=== PATIENT | female | born 1930 | race Caucasian/White ===

== ENCOUNTER 2017-04-16 13:52 | Emergency (ER) | payer OTHER, BC ==
[2017-04-16 16:58] LABS: BASOPHIL % 0.7 % (0-2); PLATELET COUNT 341 x10^3mcL (130-400); RED CELL DISTRIBUTION WIDTH 14.4 % (11.5-14.5)
[2017-04-16 17:08] LABS: CALCIUM 9.5 mg/dL (8.5-10.1); CARBON DIOXIDE 21.6 mmol/L (21-32); CHLORIDE SERUM 102 mmol/L (98-107); CREATININE SERUM 0.9 mg/dL (0.6-1.0); GLUCOSE SERUM 112 mg/dL (74-106); POTASSIUM SERUM 3.5 mmol/L (3.5-5.1); SODIUM SERUM 135 mmol/L (136-145)
[2017-04-16 17:12] LABS: ALKALINE PHOSPHATASE 145 U/L (46-116); ALT/SGPT 17 U/L (14-59); AMYLASE 43 U/L (25-115); AST/SGOT 18 U/L (15-37); BILIRUBIN TOTAL 0.7 mg/dL (0.20-1.00); LIPASE 44 IU/L (73-393); TOTAL PROTEIN, SERUM 8.2 g/dL (6.4-8.2)
[2017-04-16 17:40] LABS: microscopic required? YES; urine erythrocyte NEGATIVE (NEGATIVE)
[2017-04-16 19:10] VITALS: BP 147/98
== END 2017-04-16 19:10 | disposition home or self-care (01) ==
LOC: ED 13:52
PROVIDERS: Emergency Medicine
DX: R10.9 Unspecified abdominal pain (principal); R19.7 Diarrhea, unspecified; I10 Essential (primary) hypertension; E11.9 Type 2 diabetes mellitus without complications; Z79.899 Other long term (current) drug therapy
CPT/HCPCS: 83880; J2405; J7030

== ENCOUNTER 2017-08-12 16:02 | Inpatient (IN) | payer OTHER, BC ==
[~2017-08-12] VITALS: Ht 162.6 cm; Wt 91.0 kg
--- NOTE | 2017-08-12 16:50 | NUR ---
PT BIB SON FOR C/O RIGHT FLANK PAIN AND WEAKNESS, PT REPORT WAS JUST SEEN BY PRIMARY MD DR. 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
--- NOTE | 2017-08-12 16:53 | NUR ---
DR. HUBER AT BEDSIDE FOR MSE
--- NOTE | 2017-08-12 18:00 | NUR ---
PT MEDICATED PER MD ORDER FOR PAIN AND N/V, PT TOLERATED WELL, LAB AT BEDSIDE FOR BLOOD DRAW AND BLOOD CULTURES, WILL ADMINISTER ORDERED IV ABX AFTER BLOOD CULTURES
[2017-08-12 18:38] LABS: BASOPHIL % 1.8 % (0-2); PLATELET COUNT 356 x10^3mcL (130-400); RED CELL DISTRIBUTION WIDTH 14.5 % (11.5-14.5)
--- NOTE | 2017-08-12 18:57 | NUR ---
UPON ASSISTANCE WITH PT TO RESTROOM PT REPORTS PAIN LOWERED FORM 07/14 TO 10/14 AFTER MED ADMINISTRATION
--- NOTE | 2017-08-12 18:57 | NUR ---
PT IV INFILTRATED PT WAS ASSISTED TO RESTROOM AND WASHED HANDS IN SINK, IV DISCONNECTED WITH ANGIOCATH INTACT, PRESSURE DRESSING APPLIED, IV ABX TO BE INFUSED SOON ANOTHER IV SITE IS ESTABLISHED, URINE COLLECTED AND SENT TO LAB FOR TESTS, MRSA SWAB COLLECTED AND SENT TO LAB
--- NOTE | 2017-08-12 19:00 | NUR ---
REPORT RECEIVED FROM DAY SHIFT RN NO SIGN OF DISTRESS PT TO BE ADMIT AWAIT BED PLACEMENT MED GIVEN PER MD IV IN PLACE AQDMITION ORDERS IN PLACE VSS CONT TO MONITOR CONT TO MONITOR
[2017-08-12 19:03] LABS: CALCIUM 9.2 mg/dL (8.5-10.1); CARBON DIOXIDE 24.8 mmol/L (21-32); CHLORIDE SERUM 105 mmol/L (98-107); GLUCOSE SERUM 78 mg/dL (74-106); POTASSIUM SERUM 3.6 mmol/L (3.5-5.1); SODIUM SERUM 141 mmol/L (136-145)
[2017-08-12 19:14] LABS: CREATINE KINASE 25 U/L (26-192)
[2017-08-12 19:21] LABS: ALBUMIN 3.5 g/dL (3.4-5.0); ALKALINE PHOSPHATASE 140 U/L (46-116); ALT/SGPT 26 U/L (14-59); AST/SGOT 18 U/L (15-37); BILIRUBIN TOTAL 0.3 mg/dL (0.20-1.00); TOTAL PROTEIN, SERUM 8.2 g/dL (6.4-8.2)
[2017-08-12 19:38] LABS: CK-MB < 0.5 ng/mL (0-3.6)
[2017-08-12 19:50] LABS: microscopic required? YES; urine erythrocyte TRACE (NEGATIVE)
--- NOTE | 2017-08-12 20:35 | NUR ---
REPORT CALLED TO FRANCISCO J COOK RN ALL QUESTIONS ASKED AND ANSWERED PT [facility]
--- NOTE | 2017-08-12 21:00 | NUR ---
PT TRANSFERED TO FLOOR W/ RN AND TECH VIA GURNEY FROM CT IN STABLE CONDITION W/ ALL PERSONAL BELONGINGS.
[2017-08-12 21:18] LABS: T3 TOTAL 1.07 ng/mL
[2017-08-12 21:19] VITALS: BP 178/90
[2017-08-12 21:21] LABS: FREE T4 0.82 ng/dL (0.76-1.46); FREE THYROXINE INDEX 1.8 ug/dL (1.4-4.5); T4(THYROXINE) 5.7 ug/dL (4.7-13.3)
--- NOTE | 2017-08-12 21:26 | NUR ---
RECEIVED PT FROM ED VIA [employer]. ORIENTED PT TO ROOM AND SURROUNDINGS. IV NOTED TO LEFT HAND PATENT AND INTACT. TELE 14 PALCED ON PT READING NSR. INSTRUCTED PT ON THE USE OF CALL LIGHT FOR ASSISTANCE. ENDORSED PT TO PRIMARY NURSE FRANCISCO J
[2017-08-12 21:31] VITALS: BP 179/90
[2017-08-12 21:33] LABS: CHOLESTEROL/HDL RATIO 3.6; PHOSPHOROUS 2.6 mg/dL (2.5-4.9)
[2017-08-12] MEDS ORDERED: CLONIDINE HCL0.2 MG PO (21:40)
[2017-08-12] MEDS ORDERED: NOR10 PO (21:44)
[2017-08-12] MEDS ORDERED: BENAZEPRIL HYDR20 M1 PO (21:44)
[2017-08-12] MEDS ORDERED: OMEPRAZOLE40 M1 PO (21:45)
[2017-08-12] MEDS ORDERED: NOR10T PO (21:46)
[2017-08-12] MEDS ORDERED: CYMBALTA60 M1 PO (21:46)
[2017-08-12] MEDS ORDERED: ULTRAM50 MG PO (21:47)
[2017-08-12] MEDS ORDERED: GLIMEPIRIDE1 M1 PO (21:49)
--- NOTE | 2017-08-12 22:11 | NUR ---
RECEIVED PT FROM ED, NO ACUTE DISTRESS. ORIENTED PT TO ROOM. WILL CONTINUE TO MONITOR.
--- NOTE | 2017-08-12 22:52 | NUR ---
AGENCY DOCUMENTATION DONE BY Staff Name/Title - :CHAZ BANKS Addeparsandy User ID - : Agency Name - :[employer] Time Documented - From - : To - :
--- NOTE | 2017-08-13 00:11 | NUR ---
PT CURRENTLY RESTING IN BED, NO ACUTE DISTRESS. WILL CONTINUE TO MONITOR.
[2017-08-13 05:15] VITALS: BP 142/76
--- NOTE | 2017-08-13 06:05 | NUR ---
PT SLEPT PERIODICALLY THROUGHOUT NIGHT, NO ACUTE DISTRESS. ALL NEEDS MET AND ATTENDED TO. NO SIGNIFICANT CHANGES. IV PATENT AND INTACT. MEDICATED PAIN PER EMAR. BED IN LOWEST POSITION, SIDE RAILS UP X2, CALL LIGHT WITHIN REACH. WILL ENDORSE CARE TO ONCOMING NURSE.
[2017-08-13 06:06] LABS: BASOPHIL % 0.2 % (0-2); PLATELET COUNT 303 x10^3mcL (130-400)
[2017-08-13 06:17] LABS: CALCIUM 8.8 mg/dL (8.5-10.1); CARBON DIOXIDE 24.2 mmol/L (21-32); CHLORIDE SERUM 108 mmol/L (98-107); GLUCOSE SERUM 127 mg/dL (74-106); MAGNESIUM 1.9 mg/dL (1.8-2.4); PHOSPHOROUS 3.3 mg/dL (2.5-4.9); POTASSIUM SERUM 3.4 mmol/L (3.5-5.1); SODIUM SERUM 140 mmol/L (136-145)
[2017-08-13 06:23] LABS: RED CELL DISTRIBUTION WIDTH 14.7 % (11.5-14.5)
--- NOTE | 2017-08-13 07:30 | NUR ---
PATIENT IS SITTING UP IN BED. AWAKE ALERT AND ORIENTED. IV DISLODGED AND BLEEDING WHEN PATIENT GOT OOB TO THE BATHROOM. NEW IV STARTED ON RT FOREARM. PER PATIENT SHE IS HAVING LOW BACK PAIN 5/10 ON THE PAIN SCALE. WILL MEDICATE ORDERED. LUNGS CLEAR ON ROOM AIR. PATIENT IS OBESE, ABD SOFT BOWEL SOUNDS ACTIVE. LBM YESTERDAY. VOIDING WELL + UTI. NO ACUTE DISTRESS NOTED. WILL CONTINUE TO [facility]. TELE 14 NSR.
--- NOTE | 2017-08-13 08:00 | NUR ---
PATIENT'S PLAN OF CARE WAS DISCUSSED AND REVIEWED WITH FRONT DESK MANAGER:PHUONG MUÑOZ
--- NOTE | 2017-08-13 08:15 | NUR ---
DR LINDA AND MEDICAL TEAM INTO SEE PATIENT AND DISCUSS PLAN OF CARE.
--- NOTE | 2017-08-13 09:10 | NUR ---
PATIENT OOB WITH P.T. AND AMBULATED WITH REYNALDO OF A WALKER. TOLERATED WELL.
[2017-08-13 09:36] VITALS: BP 149/71
[2017-08-13] MEDS ORDERED: ATIVAN1 MG PO ×3 (13:15→13:18)
[2017-08-13 13:30] VITALS: BP 149/85
--- NOTE | 2017-08-13 13:39 | NUR ---
PATIENT SITTING UP IN BED EATING LUNCH TRAY. DENIES ANY PAIN OR DISCOMFORT AT THIS TIME. ASSISTED UP TO THE BATHROOM PRN. NO ACUTE DISTRESS NOTED. WILL CONTINUE TO MONITOR.
[2017-08-13 17:28] VITALS: BP 164/86
--- NOTE | 2017-08-13 18:18 | NUR ---
PATIENT SITTING UP IN BED EATING DINNER TRAY. NO CHANGE IN CONDITION NOTED. RENAL US DONE THIS AFTERNOON. PATIENT ASSISTED UP TO THE BATHROOM PRN. PER PATIENT SHE HAD A BM THIS AM. IVF INFUSING WELL SITE PATENT. NO CHANGE IN CONDITION NOTED. WILL ENDORSE TO [facility] NURSE.
--- NOTE | 2017-08-13 18:55 | NUR ---
I HAVE REVIEWED THE DATA COLLECTION BY LETICIA (NAME):PHUONG MUÑOZ ENTERED ON (DATE/TIME):08/13/17 I CONCUR WITH THE DATA AND ANY EXCEPTIONS OR COMMENTS ARE LISTED BELOW:
--- NOTE | 2017-08-13 19:23 | NUR ---
RECEIVED PT FROM PREVIOUS SHIFT. PT A/OX4. DENIES PAIN. DENIES SOB ON RA. IV PATENT AND INFUSING NS AT 100ML/HR WITH NO S/S OF INFILTRATION. WALKER AT BEDSIDE. CALL LIGHT WITHIN REACH, BED IN LOW POSITION. WILL CONTINUE TO MONITOR.
[2017-08-13 21:56] VITALS: BP 162/79
[2017-08-14 06:00] VITALS: BP 166/102
[2017-08-14 06:22] LABS: CALCIUM 8.8 mg/dL (8.5-10.1); CARBON DIOXIDE 23.2 mmol/L (21-32); CHLORIDE SERUM 106 mmol/L (98-107); GLUCOSE SERUM 97 mg/dL (74-106); MAGNESIUM 1.8 mg/dL (1.8-2.4); SODIUM SERUM 139 mmol/L (136-145)
[2017-08-14 06:37] LABS: BASOPHIL % 0.5 % (0-2); PLATELET COUNT 302 x10^3mcL (130-400); RED CELL DISTRIBUTION WIDTH 14.8 % (11.5-14.5)
--- NOTE | 2017-08-14 07:34 | NUR ---
RECEIVED PT LAYING IN BED SOMEWHAT AWAKE. STATES THAT SHE DOESN'T FEEL GOOD SHE DID YESTERDAY, AND THAT SHE FEELS MORE WEAK. LET PT KNOW TO CALL FOR ASSISTANCE WHEN NEEDING TO GET UP FOR SAFETY, AND THAT SOMETIMES BEING IN THIS SETTING CAN CAUSE THE FEELING OF WEAKNESS DUE TO DECREASED ACTIVITY, AND THAT WE WOULD DISCUSS THE PLAN OF CARE WITH THE MEDICAL TEAM. PT APPEARED RECEPTIVE. CALL LIGHT WITHIN REACH, BED IN LOWEST POSITION. REMINDED TO CALL FOR ASSISTANCE WHEN NEEDED. WILL CONTINUE TO MONITOR
--- NOTE | 2017-08-14 08:35 | NUR ---
AM ROUNDS DONE, PER DR. JULIO, PT WILL STAY FOR FURTHER OBSERVATION AND CONTINUE ON IV ABX. AWAITING RESULTS OF URINE CULTURE. PT AAO x4, AND APPEARED PECEPTIVE TO TREATMENT PLAN. CALL LIGHT WITHIN REACH WILL CONTINUE TO MONITOR
[2017-08-14 10:23] VITALS: BP 146/71
--- NOTE | 2017-08-14 12:00 | NUR ---
PT CURRENTLY LYING IN SEMIFOWLERS POSITION, SOCIALIZING WITH WOOD SCIENCE PROFESSOR. VERY PLEASANT WHEN ENGAGED. TALKING TO ME ABOUT HER LIFE, HAVING MOVED FROM [facility]. BED IN LOWEST POSITION. CALL LIGHT WITHIN REACH. WILL CONTINEU TO MONITOR
[2017-08-14 13:22] VITALS: BP 144/48
--- NOTE | 2017-08-14 13:30 | NUR ---
PT EXPRESSED TO THIS SENIOR COBOL DEVELOPER THAT SHE IS NOT HAPPY ABOUT HAVING TO BE TRANSFERRED TO A SNF. STATES THAT SHE HAS BEEN TO A LOT AND THAT THE CARE THERE IS NOT GOOD, AND THAT SHE HAS GOOD INSURANCE AND DOESN'T UNDERSTAND WHY SHE CAN'T STAY HERE AND FINISH OUT HER IV ABX TREATMENT. ALLOWED HER TO VENTILATE HER FEELINGS AND THAT I WOULD CALL CASE MAE TO COME SPEAK TO HER IN REGARDS TO THE MATTER
[2017-08-14 17:15] VITALS: BP 150/80
--- NOTE | 2017-08-14 19:27 | NUR ---
SHIFT REASSESSMENT DONE.PATIENT ALERT AND ORIENTED.MAKE NEEDSKNOWN.MODIFIED CODE.GEN WEAKNESS,USES WALKER,CALL LIGHT IN REACH FOR ASSISTANCE.NS ORDERED.INFUSING WELL.TELE 14 SR.SKIN INTACT.HEPARIN SQ.FREQUENCY IN URINATION/BURNING/UTI DX.CALL LITE IN REACH.
--- NOTE | 2017-08-14 20:16 | NUR ---
PATIENT DEMANDING FOR HER NORCO Q 4 HOURS PRN,DR ALLAN MADE AWARE.IT IS SCHEDULED TID 06/17/17
--- NOTE | 2017-08-14 20:52 | NUR ---
PATIENT WANTING HER AMBIEN,I SAY I ALREADY GAVE HER,WANT ATIVAN TOO,GIVEN ALSO NORCO SHE DEMANDED EARLIER.REMINDED TO CALL FOR ASSISTANCE/BSC,SAYS SHE URINATE OFTEN.
--- NOTE | 2017-08-14 21:04 | NUR ---
ASSISTED BY SR. MANAGER CORPORATE COMMUNICATIONS,BSC IN PLACE DURING THE NIGHT.C/O FREQUENCY IN URINATION.
[2017-08-14 21:19] VITALS: BP 136/76
--- NOTE | 2017-08-15 01:28 | NUR ---
PATIENT ASSIST BSC.VOIDING,SAYS SHE URINATE OFTEN.NS AT 100 CC/ HOUR.CALL LIGHT IN REACH.
--- NOTE | 2017-08-15 05:10 | NUR ---
PATIENT DISCHARGE PLAN TODAY TO SNF,FOR PHYSICAL THERAPY AND ANTIBIOTIC.
[2017-08-15 05:35] VITALS: BP 139/76
--- NOTE | 2017-08-15 06:09 | NUR ---
PATIENT BLOOD SUGAR THIS AM 100.IVF NS AT 100 CC/ HOUR.WILL ENDORSE TO NEXT SHIFT.CALL LIGHT IN REACH.
[2017-08-15 06:14] LABS: BASOPHIL % 0.7 % (0-2); PLATELET COUNT 278 x10^3mcL (130-400)
[2017-08-15 06:30] LABS: CALCIUM 8.9 mg/dL (8.5-10.1); CARBON DIOXIDE 25.2 mmol/L (21-32); CHLORIDE SERUM 106 mmol/L (98-107); GLUCOSE SERUM 99 mg/dL (74-106); POTASSIUM SERUM 3.9 mmol/L (3.5-5.1); SODIUM SERUM 140 mmol/L (136-145)
[2017-08-15 06:49] LABS: RED CELL DISTRIBUTION WIDTH 14.8 % (11.5-14.5)
--- NOTE | 2017-08-15 07:20 | NUR ---
PT IN FOWLERS, AWAKE, COOPERATIVE OF CARE. DENIES PAIN AT MOMENT. REPORTS WEAKNESS. BANDAID IN PLACE TO RLE POSTERIOR THIGH, CDI. IV INFUSING WELL TO RH #24 NS 100ML/HR. EFFORTLESS BREATHING ON ROOM AIR. CALL LIGHT WITHIN REACH. BED IN LOWEST POSITION, FWW AT BEDSIDE FOR AMBULATION.
[2017-08-15 09:42] VITALS: BP 146/76
[2017-08-15] MEDS ORDERED: LAC PO (12:59)
[2017-08-15 13:39] VITALS: BP 153/71
[2017-08-15 13:48] VITALS: Ht 162.6 cm; Wt 91.0 kg
[2017-08-15] MEDS ORDERED: ROC1I IV (13:49)
[2017-08-15 13:59] VITALS: BP 153/71
--- NOTE | 2017-08-15 14:10 | NUR ---
IV ACCESS RESTARTED TO LFA #22. IV PATENT, FLUSHES WELL. PT TOLERATED PROCEDURE WELL. IV ACCESS REMOVED DUE TO INFILTRATION. RH IV CATHETER REMOVED #24. CATHETER INTACT.
--- NOTE | 2017-08-15 15:30 | NUR ---
DISCHARGE INSTRUCTIONS AND TRANSFER INSTRUCTIONS GIVEN TO PT. TELE BOX REMOVED. PT AGREED TO BE TRANSFERRED TO FACILITY. REPORT GIVEN TO SUMA LOPES AT FACILITY. [facility] PROVIDED TRANSPORTATION. PT DC'D WITH IV ACCESS FOR ABX CONTINUATION. IV ACCESS TO LFA #22.
== END 2017-08-15 15:39 | DRG 872 ==
LOC: ED 16:02 → DU 19:53
PROVIDERS: Emergency Medicine; Family Medicine; ADMIT Family Medicine Sports Medicine
DX: A41.9 Sepsis, unspecified organism (principal); N39.0 Urinary tract infection, site not specified; D68.69 Other thrombophilia; E11.59 Type 2 diabetes mellitus with other circulatory complications; R31.9 Hematuria, unspecified; K21.9 Gastro-esophageal reflux disease without esophagitis; K57.30 Diverticulosis of large intestine without perforation or abscess without bleeding; I10 Essential (primary) hypertension; D35.02 Benign neoplasm of left adrenal gland; M06.9 Rheumatoid arthritis, unspecified; E87.6 Hypokalemia; F32.9 Major depressive disorder, single episode, unspecified; G47.00 Insomnia, unspecified; M34.9 Systemic sclerosis, unspecified; E78.5 Hyperlipidemia, unspecified; D64.9 Anemia, unspecified; G89.29 Other chronic pain; M25.561 Pain in right knee; Z68.34 Body mass index [BMI] 34.0-34.9, adult; Z99.81 Dependence on supplemental oxygen
CPT/HCPCS: 36600; 82962; 83880; 84439; 97110-GP; 97116-GP; 97530-GP; J0696; J0780; J1644; J3010; J7030; Q0092

== ENCOUNTER 2018-03-09 16:03 | Inpatient (IN) | payer OTHER, BC ==
[~2018-03-09] VITALS: Ht 162.6 cm; Wt 86.8 kg
[~2018-03-09 16:03] MED LIST: ATIVAN1 MG PO; BENAZEPRIL HYDR20 M1 PO; CLONIDINE HCL0.2 MG PO; CYMBALTA60 M1 PO; GLIMEPIRIDE1 M1 PO; LAC PO; NOR10 PO; NOR10T PO; OMEPRAZOLE40 M1 PO; ROC1I IV; ULTRAM50 MG PO
[2018-03-09 17:30] LABS: BASOPHIL % 0.4 % (0-2); PLATELET COUNT 300 x10^3mcL (130-400)
[2018-03-09 17:34] LABS: RED CELL DISTRIBUTION WIDTH 14.8 % (11.5-14.5)
[2018-03-09 17:39] LABS: CALCIUM 8.8 mg/dL (8.5-10.1); CARBON DIOXIDE 19.6 mmol/L (21-32); CHLORIDE SERUM 110 mmol/L (98-107); CREATININE SERUM 1.2 mg/dL (0.6-1.0); GLUCOSE SERUM 88 mg/dL (74-106); POTASSIUM SERUM 3.1 mmol/L (3.5-5.1); SODIUM SERUM 146 mmol/L (136-145)
[2018-03-09 17:42] LABS: ALBUMIN 3.6 g/dL (3.4-5.0); ALKALINE PHOSPHATASE 146 U/L (46-116); ALT/SGPT 18 U/L (14-59); AST/SGOT 16 U/L (15-37); BILIRUBIN TOTAL 0.29 mg/dL (0.20-1.00); TOTAL PROTEIN, SERUM 7.9 g/dL (6.4-8.2)
[2018-03-09 19:05] LABS: UA SPECIFIC GRAVITY <=1.005 (1.005-1.035); microscopic required? YES; urine erythrocyte TRACE (NEGATIVE)
[2018-03-09 20:15] VITALS: BP 155/87
[2018-03-09 20:42] LABS: CHOLESTEROL/HDL RATIO 3.8; PHOSPHOROUS 3.6 mg/dL (2.5-4.9); TOTAL IRON BINDING CAPACITY 408 ug/dL (250-450)
[2018-03-09 20:43] LABS: IRON 30 ug/dL (50-170)
[2018-03-09 20:47] LABS: FREE T4 0.95 ng/dL (0.76-1.46); FREE THYROXINE INDEX 2.7 ug/dL (1.4-4.5); T4(THYROXINE) 8.3 ug/dL (4.7-13.3)
[2018-03-09 20:48] LABS: RED BLOOD CELLS 4.26 M/mm3 (4.10-5.10)
[2018-03-09 21:12] LABS: T3 TOTAL 1.15 ng/mL
[2018-03-10] VITALS (7 sets, daily range): BP systolic 110–151; BP diastolic 56–79
[2018-03-10 06:50] LABS: BASOPHIL % 0.4 % (0-2); PLATELET COUNT 323 x10^3mcL (130-400)
[2018-03-10 06:59] LABS: RED CELL DISTRIBUTION WIDTH 14.8 % (11.5-14.5)
[2018-03-10 07:11] LABS: CARBON DIOXIDE 24.4 mmol/L (21-32); CHLORIDE SERUM 106 mmol/L (98-107); CREATININE SERUM 1.2 mg/dL (0.6-1.0); GLUCOSE SERUM 102 mg/dL (74-106); MAGNESIUM 2.1 mg/dL (1.8-2.4); PHOSPHOROUS 3.9 mg/dL (2.5-4.9); POTASSIUM SERUM 4.1 mmol/L (3.5-5.1); SODIUM SERUM 141 mmol/L (136-145)
[2018-03-11 05:46] VITALS: BP 104/59
[2018-03-11 06:23] LABS: BASOPHIL % 0.5 % (0-2); PLATELET COUNT 357 x10^3mcL (130-400)
[2018-03-11 06:31] LABS: CALCIUM 9.1 mg/dL (8.5-10.1); CHLORIDE SERUM 106 mmol/L (98-107); CREATININE SERUM 1.3 mg/dL (0.6-1.0); GLUCOSE SERUM 126 mg/dL (74-106); MAGNESIUM 2.1 mg/dL (1.8-2.4); PHOSPHOROUS 3.9 mg/dL (2.5-4.9); POTASSIUM SERUM 3.8 mmol/L (3.5-5.1); SODIUM SERUM 142 mmol/L (136-145)
[2018-03-11 06:43] LABS: RED CELL DISTRIBUTION WIDTH 15.2 % (11.5-14.5)
[2018-03-11 18:07] VITALS: BP 144/63
[2018-03-11 20:54] VITALS: BP 115/58
[2018-03-12 05:39] VITALS: BP 108/68
[2018-03-12 05:55] LABS: BASOPHIL % 0.5 % (0-2); PLATELET COUNT 299 x10^3mcL (130-400)
[2018-03-12 06:29] LABS: CALCIUM 8.9 mg/dL (8.5-10.1); CARBON DIOXIDE 27.3 mmol/L (21-32); CHLORIDE SERUM 105 mmol/L (98-107); CREATININE SERUM 1.4 mg/dL (0.6-1.0); GLUCOSE SERUM 120 mg/dL (74-106); PHOSPHOROUS 4.1 mg/dL (2.5-4.9); SODIUM SERUM 141 mmol/L (136-145)
[2018-03-12 06:33] LABS: RED CELL DISTRIBUTION WIDTH 14.9 % (11.5-14.5)
[2018-03-12 08:28] VITALS: Ht 162.6 cm; Wt 86.8 kg
[2018-03-12 10:29] VITALS: BP 134/69
[2018-03-12] MEDS ORDERED: MEROPENEM1 GM IV (15:53)
[2018-03-12 17:27] VITALS: BP 134/69
[2018-03-12] MEDS ORDERED: ATIVAN1 MG PO (17:32)
== END 2018-03-12 17:45 | DRG 871 ==
LOC: ED 16:03 → DU 18:41 → MU 18:41 → DU 19:50 → MU 03-10 11:45
PROVIDERS: Emergency Medicine; Family Medicine
DX: A41.9 Sepsis, unspecified organism (principal); I50.43 Acute on chronic combined systolic (congestive) and diastolic (congestive) heart failure; L03.116 Cellulitis of left lower limb; N39.0 Urinary tract infection, site not specified; E87.0 Hyperosmolality and hypernatremia; E11.42 Type 2 diabetes mellitus with diabetic polyneuropathy; E11.51 Type 2 diabetes mellitus with diabetic peripheral angiopathy without gangrene; E11.65 Type 2 diabetes mellitus with hyperglycemia; I11.0 Hypertensive heart disease with heart failure; J20.9 Acute bronchitis, unspecified; E87.6 Hypokalemia; E78.5 Hyperlipidemia, unspecified; D64.9 Anemia, unspecified; M06.9 Rheumatoid arthritis, unspecified; Z66 Do not resuscitate; R31.9 Hematuria, unspecified; G47.00 Insomnia, unspecified; K21.9 Gastro-esophageal reflux disease without esophagitis; E66.9 Obesity, unspecified; Z68.32 Body mass index [BMI] 32.0-32.9, adult; Z87.891 Personal history of nicotine dependence
CPT/HCPCS: 82962; 83880; 84439; 85378; 94150; 97110-GP; 97116-GP; 97530-GP; J0696; J1644; J1940; J2185; J2405; J2543; J7620; Q0092

== ENCOUNTER 2018-10-08 12:58 | Inpatient (IN) | payer OTHER, BC ==
[~2018-10-08] VITALS: Ht 162.6 cm; Wt 87.1 kg
[~2018-10-08 12:58] MED LIST changes: +MEROPENEM1 GM IV
[2018-10-08 13:33] VITALS: Ht 162.6 cm; Wt 87.1 kg
[2018-10-08 15:04] LABS: RED CELL DISTRIBUTION WIDTH 14.4 % (11.5-14.5)
[2018-10-08] MEDS ORDERED: CYMBALTA20 M1 (15:10)
[2018-10-08] MEDS ORDERED: MAC100 (15:10)
[2018-10-08] MEDS ORDERED: NORCO 10-325 T1 EACH PO (15:11)
[2018-10-08] MEDS ORDERED: GELNIQUE100 MG/GM TOP (15:11)
[2018-10-08 15:12] LABS: PLATELET COUNT 434 x10^3mcL (130-400)
[2018-10-08 15:39] LABS: ALKALINE PHOSPHATASE 138 U/L (46-116); ALT/SGPT 19 U/L (14-59); AST/SGOT 17 U/L (15-37); BILIRUBIN TOTAL 1.05 mg/dL (0.20-1.00); CALCIUM 9.1 mg/dL (8.5-10.1); CARBON DIOXIDE 21.4 mmol/L (21-32); CHLORIDE SERUM 95 mmol/L (98-107); CREATININE SERUM 1.5 mg/dL (0.6-1.0); GLUCOSE SERUM 238 mg/dL (74-106); MAGNESIUM 2.2 mg/dL (1.8-2.4); SODIUM SERUM 133 mmol/L (136-145)
[2018-10-08 15:49] LABS: TOTAL PROTEIN, SERUM 8.8 g/dL (6.4-8.2)
[2018-10-08 15:50] LABS: ALBUMIN 3.8 g/dL (3.4-5.0)
[2018-10-08 15:51] LABS: BAND NEUTROPHIL 3 % (0-10); BASOPHIL 0 % (0-2); MONOCYTE 3 % (0-7); SEGMENTED NEUTROPHILS 86 % (37-75); rbc morphology (normal/abnorm) NORMAL (NORMAL)
[2018-10-08 15:52] LABS: PLATELET MORPHOLOGY PLATELETS INCREASED
[2018-10-08 16:49] LABS: UA SPECIFIC GRAVITY 1.025 (1.005-1.035); microscopic required? YES; urine erythrocyte TRACE (NEGATIVE)
[2018-10-08 22:38] VITALS: BP 215/101
[2018-10-09] VITALS (7 sets, daily range): BP systolic 152–216; BP diastolic 68–105
[2018-10-09 07:08] LABS: CALCIUM 8.8 mg/dL (8.5-10.1); CHLORIDE SERUM 100 mmol/L (98-107); CREATININE SERUM 1.3 mg/dL (0.6-1.0); GLUCOSE SERUM 237 mg/dL (74-106); SODIUM SERUM 136 mmol/L (136-145)
[2018-10-09 09:00] LABS: PLATELET COUNT 429 x10^3mcL (130-400); RED CELL DISTRIBUTION WIDTH 14.8 % (11.5-14.5)
[2018-10-09 10:58] LABS: ATYPICAL LYMPH 1 %; BAND NEUTROPHIL 1 % (0-10); BASOPHIL 0 % (0-2); MONOCYTE 4 % (0-7); PLATELET MORPHOLOGY PLATELETS NORMAL; SEGMENTED NEUTROPHILS 91 % (37-75); rbc morphology (normal/abnorm) ABNORMAL (NORMAL)
[2018-10-10 05:05] VITALS: BP 132/63
[2018-10-10 09:40] VITALS: BP 160/83
[2018-10-10 17:37] VITALS: BP 177/102
[2018-10-10 20:47] VITALS: BP 169/85
[2018-10-11 05:26] VITALS: BP 167/72
[2018-10-11 06:36] LABS: BASOPHIL % 0.2 % (0-2); PLATELET COUNT 320 x10^3mcL (130-400)
[2018-10-11 06:37] LABS: CALCIUM 8.4 mg/dL (8.5-10.1); CHLORIDE SERUM 105 mmol/L (98-107); CREATININE SERUM 1.2 mg/dL (0.6-1.0); GLUCOSE SERUM 153 mg/dL (74-106); POTASSIUM SERUM 5.1 mmol/L (3.5-5.1); SODIUM SERUM 136 mmol/L (136-145)
[2018-10-11 06:49] LABS: RED CELL DISTRIBUTION WIDTH 14.6 % (11.5-14.5)
[2018-10-11 08:20] VITALS: BP 159/63
[2018-10-11 12:00] VITALS: BP 141/63
[2018-10-11 17:50] VITALS: BP 169/76
[2018-10-11 21:49] VITALS: BP 172/68
[2018-10-12 05:54] VITALS: BP 152/63
[2018-10-12 06:49] LABS: CALCIUM 8.1 mg/dL (8.5-10.1); CARBON DIOXIDE 25.4 mmol/L (21-32); CHLORIDE SERUM 104 mmol/L (98-107); CREATININE SERUM 1.1 mg/dL (0.6-1.0); GLUCOSE SERUM 168 mg/dL (74-106); SODIUM SERUM 136 mmol/L (136-145)
[2018-10-12 07:29] LABS: BASOPHIL % 0.3 % (0-2); PLATELET COUNT 267 x10^3mcL (130-400); RED CELL DISTRIBUTION WIDTH 14.5 % (11.5-14.5)
[2018-10-12 10:00] VITALS: BP 144/61
[2018-10-12 11:47] VITALS: BP 144/61
[2018-10-12 13:46] VITALS: BP 165/74
[2018-10-12 16:57] VITALS: BP 174/66
[2018-10-12 20:26] VITALS: BP 148/64
[2018-10-13 05:39] VITALS: BP 152/80; BP 92/54
[2018-10-13 09:33] VITALS: BP 187/81
[2018-10-13 11:01] VITALS: BP 152/80
[2018-10-13 12:31] VITALS: BP 152/86
[2018-10-13 18:27] VITALS: BP 153/90
== END 2018-10-13 19:29 | DRG 371 ==
LOC: ED 12:58 → DU 19:16
PROVIDERS: Emergency Medicine; ADMIT Internal Medicine
DX: K65.9 Peritonitis, unspecified (principal); N17.0 Acute kidney failure with tubular necrosis; K57.92 Diverticulitis of intestine, part unspecified, without perforation or abscess without bleeding; K52.9 Noninfective gastroenteritis and colitis, unspecified; K27.9 Peptic ulcer, site unspecified, unspecified as acute or chronic, without hemorrhage or perforation; I16.0 Hypertensive urgency; I12.9 Hypertensive chronic kidney disease with stage 1 through stage 4 chronic kidney disease, or unspecified chronic kidney disease; N18.2 Chronic kidney disease, stage 2 (mild); E87.6 Hypokalemia; G47.00 Insomnia, unspecified; M06.9 Rheumatoid arthritis, unspecified; Z79.891 Long term (current) use of opiate analgesic
CPT/HCPCS: 87804; 97110-GP; 97116-GP; 97530-GP; J0360; J1885; J1956; J2270; J2405; J2543; J2550; J2765; J3010; J3480; J3490; J7030

== ENCOUNTER 2018-12-26 19:23 | Inpatient (IN) | payer OTHER, BC ==
[~2018-12-26] VITALS: Ht 162.6 cm; Wt 89.1 kg
[~2018-12-26 19:23] MED LIST changes: +CYMBALTA20 M1; +GELNIQUE100 MG/GM TOP; +MAC100; +NORCO 10-325 T1 EACH PO
[2018-12-26 21:15] LABS: OSMOLALITY SERUM 283 mOsm/kg (278-298)
[2018-12-26 21:32] LABS: CARBON DIOXIDE 23.8 mmol/L (21-32); CHLORIDE SERUM 101 mmol/L (98-107); CREATININE SERUM 1.2 mg/dL (0.6-1.0); GLUCOSE SERUM 176 mg/dL (74-106); SODIUM SERUM 137 mmol/L (136-145)
[2018-12-26 21:33] LABS: ALBUMIN 3.4 g/dL (3.4-5.0); ALKALINE PHOSPHATASE 133 U/L (46-116); ALT/SGPT 19 U/L (14-59); AST/SGOT 16 U/L (15-37); BILIRUBIN TOTAL 0.48 mg/dL (0.20-1.00); CALCIUM 9.1 mg/dL (8.5-10.1); LIPASE 37 IU/L (73-393); TOTAL PROTEIN, SERUM 7.9 g/dL (6.4-8.2)
[2018-12-26 21:36] LABS: POTASSIUM SERUM 2.8 mmol/L (3.5-5.1)
[2018-12-26 23:45] LABS: BASOPHIL % 0.2 % (0-2)
[2018-12-26 23:52] LABS: PLATELET COUNT 425 x10^3mcL (130-400); RED CELL DISTRIBUTION WIDTH 14.7 % (11.5-14.5)
[2018-12-27] VITALS (7 sets, daily range): BP systolic 138–181; BP diastolic 71–95; Ht 162.6 cm; Wt 89.1 kg
[2018-12-27] MEDS ORDERED: PREDNISONE2.5 MG PO (00:30)
[2018-12-27 05:19] LABS: microscopic required? YES; urine erythrocyte NEGATIVE (NEGATIVE)
[2018-12-27 11:03] LABS: BASOPHIL % 0.5 % (0-2); PLATELET COUNT 394 x10^3mcL (130-400); RED CELL DISTRIBUTION WIDTH 13.4 % (11.5-14.5)
[2018-12-27 12:24] LABS: CALCIUM 8.3 mg/dL (8.5-10.1); CARBON DIOXIDE 26.5 mmol/L (21-32); CHLORIDE SERUM 105 mmol/L (98-107); GLUCOSE SERUM 158 mg/dL (74-106); POTASSIUM SERUM 3.9 mmol/L (3.5-5.1); SODIUM SERUM 136 mmol/L (136-145)
[2018-12-28 05:26] VITALS: BP 148/83
[2018-12-28 07:18] LABS: BASOPHIL % 1.2 % (0-2); PLATELET COUNT 378 x10^3mcL (130-400); RED CELL DISTRIBUTION WIDTH 14.9 % (11.5-14.5)
[2018-12-28 07:20] LABS: CALCIUM 8.6 mg/dL (8.5-10.1); CARBON DIOXIDE 22.4 mmol/L (21-32); CHLORIDE SERUM 109 mmol/L (98-107); GLUCOSE SERUM 111 mg/dL (74-106); POTASSIUM SERUM 4.3 mmol/L (3.5-5.1); SODIUM SERUM 141 mmol/L (136-145)
[2018-12-28 09:23] VITALS: BP 202/102
[2018-12-28 14:08] VITALS: BP 167/96
[2018-12-28 15:25] VITALS: BP 164/92
[2018-12-28 17:39] VITALS: BP 177/92
[2018-12-28 21:20] VITALS: BP 140/73
[2018-12-29 06:00] VITALS: BP 174/82
[2018-12-29 06:51] LABS: BASOPHIL % 0.3 % (0-2); PLATELET COUNT 399 x10^3mcL (130-400)
[2018-12-29 06:54] LABS: CALCIUM 8.8 mg/dL (8.5-10.1); CARBON DIOXIDE 23.7 mmol/L (21-32); CHLORIDE SERUM 106 mmol/L (98-107); GLUCOSE SERUM 127 mg/dL (74-106); POTASSIUM SERUM 3.6 mmol/L (3.5-5.1); SODIUM SERUM 139 mmol/L (136-145)
[2018-12-29 07:27] LABS: RED CELL DISTRIBUTION WIDTH 14.9 % (11.5-14.5)
[2018-12-29 09:33] VITALS: BP 137/50
[2018-12-29 13:29] VITALS: BP 167/71
[2018-12-29 17:04] VITALS: BP 154/52
[2018-12-29 21:05] VITALS: BP 183/81
[2018-12-29 21:56] VITALS: BP 156/76
[2018-12-30 06:00] VITALS: BP 134/70
[2018-12-30 10:46] VITALS: BP 129/74
[2018-12-30 13:45] VITALS: BP 108/52
[2018-12-30 15:17] VITALS: BP 108/52
[2018-12-30 17:14] VITALS: BP 138/79
== END 2018-12-30 18:15 | DRG 683 ==
LOC: ED 19:23 → DU 23:05 → EDBEDREQ 23:09 → DU 23:55
PROVIDERS: Emergency Medicine; Internal Medicine Gastroenterology; ADMIT Internal Medicine
PROC: 0DBH8ZX Excision of Cecum, Via Natural or Artificial Opening Endoscopic, Diagnostic (ICD-10-PCS; principal; 2018-12-28 11:00)
PROC: 0DBL8ZZ Excision of Transverse Colon, Via Natural or Artificial Opening Endoscopic (ICD-10-PCS; 2018-12-28 11:00)
PROC: 0DBN8ZZ Excision of Sigmoid Colon, Via Natural or Artificial Opening Endoscopic (ICD-10-PCS; 2018-12-28 11:00)
DX: N17.9 Acute kidney failure, unspecified (principal); N39.0 Urinary tract infection, site not specified; K52.9 Noninfective gastroenteritis and colitis, unspecified; K57.30 Diverticulosis of large intestine without perforation or abscess without bleeding; E86.0 Dehydration; I12.9 Hypertensive chronic kidney disease with stage 1 through stage 4 chronic kidney disease, or unspecified chronic kidney disease; E11.22 Type 2 diabetes mellitus with diabetic chronic kidney disease; E11.65 Type 2 diabetes mellitus with hyperglycemia; E11.42 Type 2 diabetes mellitus with diabetic polyneuropathy; K63.5 Polyp of colon; N18.9 Chronic kidney disease, unspecified; E87.6 Hypokalemia; K21.9 Gastro-esophageal reflux disease without esophagitis; M06.9 Rheumatoid arthritis, unspecified; M34.83 Systemic sclerosis with polyneuropathy; Z68.31 Body mass index [BMI] 31.0-31.9, adult; Z79.84 Long term (current) use of oral hypoglycemic drugs; Z79.4 Long term (current) use of insulin
CPT/HCPCS: 43235; 45378; 82962; 83880; 87046; 87046-59; J1200; J1610; J1956; J2250; J2270; J2310; J2405; J2550; J3010; J3475; J3490; J7030; J7512; Q0092

== ENCOUNTER 2019-05-28 02:34 | Inpatient (IN) | payer OTHER, BC, MEDICAID ==
[~2019-05-28] VITALS: Ht 162.6 cm; Wt 84.4 kg
[~2019-05-28 02:34] MED LIST changes: -BENAZEPRIL HYDR20 M1 PO; +BENAZEPRIL HYDR40 M1 PO; -CYMBALTA20 M1; +CYMBALTA20 M1 PO; +GELNIQUE100 MG/GM PO; -GELNIQUE100 MG/GM TOP; +PREDNISONE2.5 MG PO
[2019-05-28 02:37] VITALS: Ht 162.6 cm; Wt 84.4 kg
[2019-05-28 03:31] LABS: BASOPHIL % 0.2 % (0-2); PLATELET COUNT 360 x10^3mcL (130-400); RED CELL DISTRIBUTION WIDTH 14.7 % (11.5-14.5)
[2019-05-28 03:49] LABS: CALCIUM 8.7 mg/dL (8.5-10.1); CARBON DIOXIDE 19.5 mmol/L (21-32); CHLORIDE SERUM 104 mmol/L (98-107); CREATININE SERUM 1.2 mg/dL (0.6-1.0); GLUCOSE SERUM 165 mg/dL (74-106); POTASSIUM SERUM 3.7 mmol/L (3.5-5.1); SODIUM SERUM 139 mmol/L (136-145)
[2019-05-28 03:54] LABS: ALBUMIN 3.5 g/dL (3.4-5.0); ALKALINE PHOSPHATASE 166 U/L (46-116); ALT/SGPT 14 U/L (14-59); AMYLASE 29 U/L (25-115); AST/SGOT 12 U/L (15-37); BILIRUBIN TOTAL 0.49 mg/dL (0.20-1.00); LIPASE 20 IU/L (73-393); TOTAL PROTEIN, SERUM 7.9 g/dL (6.4-8.2)
[2019-05-28 06:20] VITALS: BP 175/77
[2019-05-28 08:25] VITALS: BP 157/85
[2019-05-28 16:54] VITALS: BP 162/79
[2019-05-28 19:32] VITALS: BP 144/89
[2019-05-29 05:14] VITALS: BP 154/77
[2019-05-29 07:07] LABS: CALCIUM 7.7 mg/dL (8.5-10.1); CHLORIDE SERUM 102 mmol/L (98-107); GLUCOSE SERUM 178 mg/dL (74-106); POTASSIUM SERUM 3.6 mmol/L (3.5-5.1); SODIUM SERUM 134 mmol/L (136-145)
[2019-05-29 07:14] LABS: BASOPHIL % 0.1 % (0-2); PLATELET COUNT 364 x10^3mcL (130-400)
[2019-05-29 07:15] LABS: RED CELL DISTRIBUTION WIDTH 15.1 % (11.5-14.5)
[2019-05-29 08:10] VITALS: BP 171/85
[2019-05-29 10:15] VITALS: BP 147/79
[2019-05-29 12:00] VITALS: BP 152/73
[2019-05-29 16:17] VITALS: BP 147/70
[2019-05-29 20:31] VITALS: BP 156/78
[2019-05-30 06:29] VITALS: BP 138/78
[2019-05-30 07:47] VITALS: BP 191/100
[2019-05-30 09:39] VITALS: BP 155/79
[2019-05-30 09:53] LABS: BASOPHIL % 0.4 % (0-2); PLATELET COUNT 333 x10^3mcL (130-400); RED CELL DISTRIBUTION WIDTH 14.7 % (11.5-14.5)
[2019-05-30 10:50] LABS: microscopic required? NO
[2019-05-30 11:16] LABS: urine erythrocyte NEGATIVE (NEGATIVE)
[2019-05-30 16:42] VITALS: BP 163/87
[2019-05-30 20:23] VITALS: BP 165/91
[2019-05-31 06:04] VITALS: BP 149/71
[2019-05-31 08:46] VITALS: BP 158/64
[2019-05-31 17:33] VITALS: BP 143/86
[2019-05-31 21:03] VITALS: BP 166/80
[2019-05-31 23:08] VITALS: BP 173/90
[2019-06-01 05:37] VITALS: BP 156/67
[2019-06-01 07:57] VITALS: BP 150/95
[2019-06-01 11:35] VITALS: BP 125/63
[2019-06-01] MEDS ORDERED: NORCO1 TA2 PO (15:54)
[2019-06-01 16:06] VITALS: BP 125/63
[2019-06-01 16:17] VITALS: BP 148/77
[2019-06-01 17:11] VITALS: BP 125/63
== END 2019-06-01 17:24 | DRG 392 ==
LOC: ED 02:34 → MU 05:11
PROVIDERS: Emergency Medicine; Internal Medicine Gastroenterology; ADMIT Internal Medicine
DX: A08.4 Viral intestinal infection, unspecified (principal); D72.829 Elevated white blood cell count, unspecified; E11.65 Type 2 diabetes mellitus with hyperglycemia; I16.0 Hypertensive urgency; I10 Essential (primary) hypertension; Z79.84 Long term (current) use of oral hypoglycemic drugs
CPT/HCPCS: 82962; 87046; 87046-59; 97112-GP; 97116-GP; 97530-GP; C9113; G0378; J1940; J1956; J2405; J2550; J2765; J3010; J3490; J7030

== ENCOUNTER 2019-10-04 13:13 | Inpatient (IN) | payer OTHER, MEDICAID ==
[~2019-10-04] VITALS: Ht 162.6 cm; Wt 84.9 kg
[~2019-10-04 13:13] MED LIST changes: +NORCO1 TA2 PO
--- NOTE | 2019-10-04 14:26 | NUR ---
TO CT VIA [facility].
[2019-10-04 14:59] LABS: PLATELET COUNT 402 x10^3mcL (130-400); RED CELL DISTRIBUTION WIDTH 15.1 % (11.5-14.5)
--- NOTE | 2019-10-04 15:16 | NUR ---
PT SON AT BEDSIDE.
[2019-10-04 15:26] LABS: CALCIUM 9.1 mg/dL (8.5-10.1); CARBON DIOXIDE 25.8 mmol/L (21-32); CHLORIDE SERUM 101 mmol/L (98-107); CREATININE SERUM 1.1 mg/dL (0.6-1.0); GLUCOSE SERUM 130 mg/dL (74-106); POTASSIUM SERUM 3.7 mmol/L (3.5-5.1); SODIUM SERUM 134 mmol/L (136-145)
[2019-10-04 15:31] LABS: ALBUMIN 3.8 g/dL (3.4-5.0); ALKALINE PHOSPHATASE 197 U/L (46-116); ALT/SGPT 16 U/L (14-59); AST/SGOT 15 U/L (15-37); BILIRUBIN TOTAL 0.67 mg/dL (0.20-1.00); LIPASE 28 IU/L (73-393)
[2019-10-04 15:35] LABS: TOTAL PROTEIN, SERUM 8.3 g/dL (6.4-8.2)
--- NOTE | 2019-10-04 16:31 | NUR ---
DR ALEJO SPOKE WITH PT REGARDING TEST RESULTS AND POC
[2019-10-04 16:40] LABS: microscopic required? YES; urine erythrocyte NEGATIVE (NEGATIVE)
--- NOTE | 2019-10-04 18:13 | NUR ---
PT IS KEEPING HER BLACK PURSE WITH HER GLASSES. HAS A CELL PHNE, NO OTHER VALUABLES. WEARING 1 YELLOW METAL BAND WITH WHITE STONE. BLACK SHOES- LIGHT BLUE "HOODIE:, SHIRT, PANTS AND UNDERCLOTHING. PATIENT IS UNABLE TO PROVIDE INFORMATION FOR FULL MED RECONCILIATION, DOESN'T KNOW DOSES. SKIN ASSESSMENT= CLEAR, NO WOUNDS NOTED. PT NORMALLY AMBULATORY, ABLE TO TURN AND REPOSITION SELF.
--- NOTE | 2019-10-04 18:23 | NUR ---
PRIMARY RN STATED DR TRAYLOR MED RECONCILIATION.
--- NOTE | 2019-10-04 19:20 | NUR ---
REPORT RECEIVED FROM DAY SHIFT RN. PATIENT WAS SEEN RESTING COMFORTABLY IN BED. NO DISTRESS NOTED. BREATHING EVEN AND UNLABORED ON ROOM AIR. NO SOB OR RESP DISTRESS NOTED. DENIES CHEST PAIN/PRESSURE. C/O 9/10 RIGHT FLANK PAIN. DAY SHIFT RN MEDICATED PATIENT WITH PRN NORCO. IV TO THE LH, 22G. PATENT AND INTACT. NO REDNESS OR SWELLING NOTED. C/O MILD NAUSEA, BUT REPORTS TOLERABLE AT THIS TIME. COMFORT AND SAFETY MEASURES IN PLACE. BED IS LOCKED AND IN THE LOWEST POSITION. SIDE RAILS UP X2. ORIENTED PATIENT TO ROOM AND CALL LIGHT SYSTEM. CALL LIGHT IS WITHIN REACH. WILL CONTINUE TO MONITOR.
[2019-10-04 20:21] VITALS: BP 187/77
--- NOTE | 2019-10-04 20:50 | NUR ---
SPOKE WITH SON, CHANDRAKANT. 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 PER PATIENT'S DOCTOR, DR MOLLY HERNÁNDEZ (DR. OSEI), PATIENT WAS SUPPOSE TO GET A BONE MARROW TEST WITH DR LYNETTE LEIVA, BUT DID NOT HAVE TEST DONE YET DUE TO THE HOLIDAYS. WILL ENDORSE INFORMATION TO DAY TEAM.
--- NOTE | 2019-10-04 21:06 | NUR ---
PRN ATIVAN ADMINISTERED PRESCIRBED FOR ANXIETY. NO DISTRESS NOTED. WILL CONTINUE TO MONITOR.
--- NOTE | 2019-10-04 21:30 | NUR ---
REPORT NORCO 5/325 IS NOT EFFECTIVE; REPORTS NORCO 10/325 IS MORE EFFECTIVE FOR HER. NOTIFIED DR. ALAN. NEW ORDERED RECEIVED [facility]; WILL CARRY OUT ORDERS.
--- NOTE | 2019-10-04 21:53 | NUR ---
PRN NORCO 5/325 ONE TIME ORDER WAS ADMINISTERED PRESCRIBED. NO DISTRESS NOTED. BREATHING EVEN. WILL CONTINUE TO MONITOR.
--- NOTE | 2019-10-04 23:06 | NUR ---
PRN AMBIEN GIVEN PER ORDER. REPORTS PAIN IMPROVED A BIT 05/14. NO DISTRESS NOTED. REPORT NAUSEA. WILL ADMINISTERED PRN MEDS.
[2019-10-04 23:17] VITALS: BP 146/55
--- NOTE | 2019-10-04 23:44 | NUR ---
PRN IV PHENERGAN WAS ADMINISTERED ORDERED FOR NASUEA; BP 146/55, HR 57. MED EDUCATION PROVIDED. NO DISTRESS NOTED. BREATHING EVEN AND UNLABORED. CALL LIGHT WITHIN REACH. WILL CONTINUE TO MONITOR.
--- NOTE | 2019-10-05 01:15 | NUR ---
RESTING IN BED WITH EYES CLOSED. NO DISTRESS NOTED. BREATHING EVEN AND UNLABORED ON ROOM AIR. NO SOB NOTED. NO S/S OF PAIN. SAFETY MEASURES IN PLACE. CALL LIGHT IS WITHIN REACH. WILL CONTINUE TO MONITOR.
--- NOTE | 2019-10-05 03:24 | NUR ---
RESTING IN BED WITH EYES. NO DISTRESS NOTED. BREATHING EVEN AND UNLABORED ON ROOM AIR. NO S/S OF PAIN NOTED. COMFORT AND SAFETY MEASURES IN PLACE. NO DISTRESS NOTED. WILL CONTINUE TO MONITOR.
--- NOTE | 2019-10-05 04:33 | NUR ---
C/O 9/10 RIGHT FLANK PAIN. PRN NORCO ADMINISTERED ORDERED. NO DISTRESS NOTED. DENIES BURNING SENSATION AT THIS TIME. SAFETY MEASURES IN PLACE. CALL LIGHT IS WITHIN REACH. WILL CONTINUE TO MONITOR.
[2019-10-05 05:08] VITALS: BP 164/61
--- NOTE | 2019-10-05 06:30 | NUR ---
RESTING IN LONG INTERVALS THROUGHOUT THE NIGHT. NO ACUTE CHANGES NOTED. BREATHING EVEN AND UNLABORED. NO SOB NOTED. NO DISTRESS NOTED. IVF INFUSING WELL. SAFETY MEASURES IN PLACE. ALL NEEDS AND CONCERNS ADDRESSED. CALL LIGHT IS WITHIN REACH. WILL ENDORSE CARE TO DAY SHIFT RN.
[2019-10-05 06:39] LABS: BASOPHIL % 0.6 % (0-2); PLATELET COUNT 313 x10^3mcL (130-400)
--- NOTE | 2019-10-05 07:10 | NUR ---
RECEIVED REPORT FROM BENITA LOPES. PATIENT RESTING COMFORTABLY IN BED WITH ALL NEEDS MET. IV TO LT HAND IS PATENT AND INFUSING 1/2 NS @ 70 ML/HR. NO REDNESS OR PAIN. PT ON ROOM AIR WITH NO C/O SOB AND NO DISTRESS NOTED. ALL QUESTIONS AND CONCERNS ADDRESSED.
[2019-10-05 07:25] LABS: CALCIUM 8.5 mg/dL (8.5-10.1); CHLORIDE SERUM 103 mmol/L (98-107); CREATININE SERUM 1.2 mg/dL (0.6-1.0); GLUCOSE SERUM 116 mg/dL (74-106); SODIUM SERUM 134 mmol/L (136-145)
[2019-10-05 07:53] VITALS: BP 150/63
[2019-10-05 08:39] LABS: RED CELL DISTRIBUTION WIDTH 15.2 % (11.5-14.5)
--- NOTE | 2019-10-05 08:52 | NUR ---
IN TO SEE PATIENT AND ADMINISTER MEDICATION (SEE EMAR). PATIENT C/O RT FLANK PAIN AND ABDOMINAL PAIN 9/10, AND ANXIETY. WILL REASSESS MEDICATION EFFECTIVENESS. ALL OTHER PATIENT NEEDS MET. WILL CONSULT WITH DR ALAN TO UPDATE ON PATIENT STATUS AND INQUIRE ABOUT POSSIBLE GI CONSULT AND PHYSICAL THERAPY.
[2019-10-05 12:07] VITALS: BP 128/60
--- NOTE | 2019-10-05 12:23 | NUR ---
SPOKE WITH DR ALAN TO REQUEST PHYSICAL THERAPY FOR PATIENT AND TO NOTIFY OF C/O ABD PAIN FOR SEVERAL DAYS. DR ALAN OK TO ORDER PT AND GI CONSULT WITH DR PEACE.
--- NOTE | 2019-10-05 13:59 | NUR ---
IN TO SEE PATIENT AND ASSIST TO BSC. PT NOW RESTING COMFORTABLY IN BED WITH ALL NEEDS MET.
--- NOTE | 2019-10-05 15:47 | NUR ---
PT C/O RT FLANK AND STOMACH PAIN. NORCO ADMINISTERED (SEE eMAR). WILL REASSESS.
[2019-10-05 16:09] VITALS: BP 147/60
--- NOTE | 2019-10-05 18:44 | NUR ---
NO SIGNIFICANT CHANGE THROUGHOUT THE DAY. PATIENT RESTING COMFORTABLY IN BED WITH ALL NEEDS MET. WILL ENDORSE ALL CARE TO ONCOMING NURSE.
--- NOTE | 2019-10-05 19:15 | NUR ---
RECEIEVED REPORT FROM DAY SHIFT NURSE, BETH LOPES. PT IS AAOX4. SPEECH IS CLEAR. DENIES DON. M/S PT. DENIES CP/PRESSURE. PULSES ARE PALPABLE. TRACE EDEMA NOTED TO BLE. BREATHING IS EVEN AND UNLABORED ON RA. LUNG SOUNDS CTA. DENIES SOB. NO RESP DISTRESS NOTED. ABD IS SOFT, ROUND, AND NONDISTENDED. BS ACTIVE. DENIES N/V/D. VOIDS FREELY. DENIES DYSURIA. GENERALIZED WEAKNESS. AMBULATORY WITH ASSIST. SKIN INTACT. C/O OF 9/10 FLANK PAIN AT THIS TIME. WILL MEDICATE PER MAR ORDER. IV TO LH DRY AND INTACT. NO ERYTHEMA NOTED. BED IN LOWEST POSITION. CALL LIGHT WITHIN REACH. WILL CONTINUE TO MONITOR.
[2019-10-05 20:12] VITALS: BP 175/73
--- NOTE | 2019-10-05 21:43 | NUR ---
ROUTINE MEDICATIONS WERE GIVEN AND TOLERATED WELL. NO ACUTE DISTRESS NOTED. PT REQUESTING ATIVAN AND AMBIEN. INFORMED PT SHE CANNOT RECEIVE BOTH AT THE SAME TIME. PT IS UPSET, BUT UNDERSTANDS. PT C/O PAIN ON IV SITE AND IS REQUESTING TO PUT IN A NEW IV. WILL INSERT. BREATHING IS EVEN AND UNLABORED ON RA. NO SIGNS OF RESP. DISTRESS. BED IN LOWEST POSITION. CALL LIGHT WITHIN REACH. WILL CONTINUE TO MONITOR.
--- NOTE | 2019-10-05 22:45 | NUR ---
AMBIEN GIVEN AT THIS TIME. NEW IV ON RFA INSERTED. PT DENIES ANY PAIN AT THIS TIME. BED IN LOWEST POSITION. CALL LIGHT WITHIN REACH. WILL CONTINUE TO MONITOR.
--- NOTE | 2019-10-06 00:30 | NUR ---
ASSISTED PT TO COMMODE. DENIES ANY PAIN AT THIS TIME. BREATHING IS EVEN AND UNALBORED ON RA. NO SIGNS OF RESP. DISTRESS. BED IN LOWEST POSITION. CALL LIGHT WITHIN REACH. WILL CONTINUE TO MONITOR.
--- NOTE | 2019-10-06 02:45 | NUR ---
CHANGED PTS GOWN FROM ACCIDENTALLY SPILLING WATER ON IT. DENIES PAIN AT THIS TIME. BREATHING IS EVEN AND UNLABORED ON RA. NO SIGNS OF RESP. DISTRESS. BED IN LOWEST POSITION. CALL LIGHT WITHIN REACH. WILL CONTINUE TO MONITOR.
[2019-10-06 05:41] VITALS: BP 186/84
--- NOTE | 2019-10-06 05:49 | NUR ---
BP WAS REPORTED TO BE 186/84. DR ALAN AWARE. NO ORDERS AT THIS TIME. WILL CONTINUE TO MONITOR.
--- NOTE | 2019-10-06 05:54 | NUR ---
PT SLEPT IN SHORT INTERVALS THROUGHOUT THE NIGHT AND COMPLIED WITH NURSING CARE WITH NO ACUTE EVENTS OCCURRING DURING THE SHIFT. COMFORT AND SAFETY MEASURES MAINTAINED. ALL NEEDS ASSESSED AND ATTENDED TO. WILL CONTINUE TO MONITOR AND ENDORSE CARE TO DAY SHIFT NURSE.
[2019-10-06 06:29] LABS: BASOPHIL % 0.5 % (0-2); PLATELET COUNT 323 x10^3mcL (130-400)
[2019-10-06 06:39] LABS: CALCIUM 8.6 mg/dL (8.5-10.1); CARBON DIOXIDE 25.8 mmol/L (21-32); CHLORIDE SERUM 103 mmol/L (98-107); CREATININE SERUM 1.1 mg/dL (0.6-1.0); GLUCOSE SERUM 132 mg/dL (74-106); POTASSIUM SERUM 4.4 mmol/L (3.5-5.1); SODIUM SERUM 136 mmol/L (136-145)
[2019-10-06 06:50] LABS: RED CELL DISTRIBUTION WIDTH 15.2 % (11.5-14.5)
--- NOTE | 2019-10-06 07:45 | NUR ---
RECEIVED PATIENT FROM MARIANNE HAQ. PATIENT IN BED AT THIS MOMENT, COMPLAINS ABOUT IV LEAKING. SPOKE WITH PATIENT ABOUT PLAN OF CARE TODAY INCLUDING MEDICATIONS. PATIENT AGREES, WILL WAIT FOR DR ALAN TO COME IN AND SPEAK WITH PATIENT. CALL LIGHT IN REACH.
[2019-10-06 08:50] VITALS: BP 172/72
--- NOTE | 2019-10-06 10:10 | NUR ---
DR ALAN IN TO SPEAK WITH PATIENT. STATES TO WAIT FOR DR PEACE TO COME IN AND EVAL PATIENT FOR FURTHER HOSPITAL STAY. DR PEACE AT NURSES STATION.
--- NOTE | 2019-10-06 10:33 | NUR ---
DR PEACE IN TO EVAL PATIENT, STATES HE WILL ORDER EGD TOMORROW AND HAVE ADDITIONAL GALBLADDER US. WILL ALSO ADJUST MEDICATIONS INCLUDING PAIN CONTROL AND BP.
[2019-10-06 12:16] VITALS: BP 91/53
[2019-10-06 14:10] VITALS: BP 149/72
--- NOTE | 2019-10-06 16:02 | NUR ---
PATIENT OBSERVED SLEEPING AT THIS TIME. WILL CONTINUE TO MONITOR.
[2019-10-06 16:20] VITALS: BP 150/64
--- NOTE | 2019-10-06 18:06 | NUR ---
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 DR ALAN CALLED AN MADE AWARE. MRSA HANDOUT PRINTED IN APPROPRIATE LANGUAGE AND GIVEN TO PATIENT. PATIENT SLEEPING IN BED AND STATES TO "EXPLAIN TO HER LATER". NOW PATIENT SEATED AT UP AT BEDSIDE , CALLED NURSES STATION STATING SHE "IS HAVING A PANIC ATTACK, AND IT FEELS LIKE SOMETHING IS SITTING ON MY CHEST". VS TAKEN AND STABLE, INFORMED CHARGE NURSE VENKAT. CHARGE NURSE AND THIS NURSE IN TO EXPLAIN TO PATIENT ABOUT MRSA COLONIZATION, ALL QUESTIONS ADDRESSED AT THIS TIME ABOUT MRSA. PATIENT NOW STATES THAT "SHE FEELS BETTER" NOW. WILL CONTINUE TO MONITOR AND RE-EDUCATE PATIENT ABOUT MRSA COLONIZATION AND WILL ENDORSE TO ONCOMING NURSE.
--- NOTE | 2019-10-06 19:07 | NUR ---
PT IS ASKING FOR PAIN MEDICATION, INFORMED PT NEW MEDICATIONS ARE BEING INPUTTED PER DR PEACE'S ORDER, AND WILL GIVE SAHARA. PT VERBALIZES UNDERSTANDING.
--- NOTE | 2019-10-06 19:15 | NUR ---
RECEIEVED REPORT FROM DAY SHIFT NURSE, NITZA LOPES. PT IS AAOX4. SPEECH IS CLEAR. DENIES DON. M/S PT. DENIES CHEST PAIN/PRESSURE. PULSES ARE PALPABLE. TRACE EDEMA NOTED TO BLE. SCDS IN PLACE. BREATHING IS EVEN AND UNLABORED ON RA. LUNG SOUNDS CTA. DENIES SOB. NO RESP DISTRESS NOTED. ABD IS SOFT, ROUND, AND NONDISTENDED. BS ACTIVE. PT JUST HAD BM, SPECIMEN SENT DOWN FOR STOOL OB. DENIES N/V/D. VOIDS FREELY, DENIES DYSURIA. BEDSIDE COMMODE. GENERALIZED WEAKNESS. WITNESSED PT AMBULATING WITH WALKER PER HOUSE PAINTER. SKIN INTACT. PT C/O 8/10 PAIN ON R FLANK AND BACK. WILL MEDICATE PER DEC ORDER. IV TO RFA DRY AND INTACT. NO ERYTHEMA NOTED. PT ASKING TO SPEAK TO SON ABOUT +MRSA. INFORMED PT WILL CALL SON SAHARA. PT VERBALIZES UNDERSTANDING. BED IN LOWEST POSITION. CALL LIGHT WITHIN REACH. WILL CONTINUE TO MONITOR.
[2019-10-06 19:54] VITALS: BP 159/70
--- NOTE | 2019-10-06 20:25 | NUR ---
CONSENT SIGNED AT THIS TIME ABOUT PROCEDURE TMRW FOR EGD AND RESULTS FOR +MRSA. PT VERBALIZES UNDERSTANDING. PT ASKING IF I CALLED SON YET, INFORMED PT I WILL CALL WHEN I CAN. PT VERBALIZES UNDERSTANDING.
--- NOTE | 2019-10-06 21:17 | NUR ---
ROUTINE MEDICATIONS WERE GIVEN AND TOLERATED WELL. NO ACUTE DISTRESS NOTED. BREATHING IS EVEN AND UNLABORED ON RA. NO SIGNS OF RESP. DISTRESS. MEDICATED PT WITH TORADOL PRN PER DEC ORDER. WILL REASSESS AND CHECK EFFECTIVENESS. PT ALSO WAS REQUESTING SLEEPING PILL. ADMINISTERED. BED IN LOWEST POSITION. CALL LIGHT WITHIN REACH. WILL CONTINUE TO MONITOR.
--- NOTE | 2019-10-06 22:02 | NUR ---
SPOKE WITH PTS SONCHANDRAKANT ABOUT PT TESTING POSITIVE FOR MRSA OF NARES. ALL QUESTIONS AND CONCERNS ANSWERED.
--- NOTE | 2019-10-06 23:57 | NUR ---
PT IS RESTING COMFORTABLY IN BED WITH EYES CLOSED, BUT EASILY AROUSABLE WHEN SPOKEN TO. BREATHING IS EVEN AND UNLABORED ON RA. NO SIGNS OF RESP. DISTRESS. BED IN LOWEST POSITION. CALL LIGHT WITHIN REACH. WILL CONTINUE TO MONITOR.
[2019-10-07 05:53] VITALS: BP 167/86
--- NOTE | 2019-10-07 06:49 | NUR ---
PT SLEPT IN LONG INTERVALS THROUGHOUT THE NIGHT AND COMPLIED WITH NURSING CARE WITH NO ACUTE EVENTS OCCURRING DURING THE SHIFT. ALL NEEDS ASSESSED AND ATTENDED TO. COMFORT AND SAFETY MEASURES MAINTAINED. WILL CONTINUE TO MONITOR AND ENDORSE CARE TO DAY SHIFT NURSE.
--- NOTE | 2019-10-07 07:00 | NUR ---
RECIEVED PT RESTING IN BED WITH NO C/O PAIN OR DISTRESS. A/O X4 WITH NO DON OR DIZZINESS REPORTED. LUNGS CTAB ON RA. RFA IV CDI, AND PATENT. SAFETY PRECAUTIONS IN PLACE, CALL LIGHT WITHIN REACH, WILL MONIOTR. PT HAS EGD SCHEDULED AT 1200 TODAY, CURRENTLY NPO.
--- NOTE | 2019-10-07 08:35 | NUR ---
TORADOL GIVEN PER EMAR FOR C/O 05/14 LOWER BACK PAIN, WILL REASSESS.
[2019-10-07 08:37] VITALS: BP 175/65
--- NOTE | 2019-10-07 10:57 | NUR ---
PT TAKE DOWN FOR GI PROCEDURE. ALL CONSENTS SIGNED BY PT.
--- NOTE | 2019-10-07 13:15 | NUR ---
PT BACK FROM GI PROCEDURE. NO DISTRESS OR PAIN REPORTED. VS: 147/73, RR 16, HR 54, TEMP 97.6, SAT 96% ON RA. SAFETY PRECAUTIONS IN PLACE, CALL LIGHT WITHIN REACH, WILL CONT TO MONITOR.
--- NOTE | 2019-10-07 14:14 | NUR ---
NORCO GIVEN PER EMAR FOR C/O 05/14 LOWER BACK PAIN. WILL REASSESS.
[2019-10-07 16:29] VITALS: BP 139/55
--- NOTE | 2019-10-07 18:07 | NUR ---
NORCO GIVEN PER EMAR FOR C/O 05/14 LOWER BACK PAIN AND ARTHRITIS. WILL REASSESS.
--- NOTE | 2019-10-07 18:08 | NUR ---
PT STABLE WITH NO C/O AO ANY DISTRESS OR SOB. A/O X4 WITH NO DON OR DIZZINESS. IV TO RFA CDI/PATENT. SAFETY PRECAUTIONS IN PLACE, CALL LIGHT WITHIN REACH, WILL ENDORSE TO NIGHT NURSE.
--- NOTE | 2019-10-07 19:35 | NUR ---
RECEIVED PT RESTING IN BED, NO ACUTE DISTRESS NOTED. PT AOX4, DENIES DON/DIZZINESS. MESURG PT, DENIES CP. PULSES PALPABLE BILAT. CTA ON RA, DENIES SOB. ABD SOFT, ROUND, DENIES ABD PAIN. PT USES BSC, DENIES DYSURIA. GENERALIZED WEAKNESS, USES WALKER AT BASELINE. SKIN INTACT. IV SITE TO THE RFA PATENT, SALINE LOCKED AT THIS TIME. ALL COMFORT AND SAFETY MEASURES PROVIDED FOR, CALL LIGHT WITHIN REACH, BED IN LOWEST POSITION, WILL CONTINUE TO MONITOR.
[2019-10-07 21:02] VITALS: BP 184/80
--- NOTE | 2019-10-08 | NUR ---
PT RESTED IN INTERVALS DURING SHIFT, NO ACUTE DISTRESS NOTED. PT RESP EVEN AND UNLABORED, ENVIRONMENT FREE OF CLUTTER, CALL LIGHT WITHIN REACH, BED IN LOWEST POSITION, WILL CONTINUE TO MONITOR.
[2019-10-08 04:20] VITALS: Ht 162.6 cm; Wt 84.9 kg
--- NOTE | 2019-10-08 05:00 | NUR ---
PT RESTED IN LONG INTERVALS DURING SHIFT, NO ACUTE CHANGES OCCURRING OVER LIGHT NIGHT. PT REMAINS AOX4, DENIES DON/DIZZINESS. 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 PT STS SHE DOES NOT WANT "DR PEACE" TAKING CARE OF HER AND STS SHE HAS A PAIN MANAGEMENT DOCTOR SHE WOULD LIKE TO FOLLOW HER (PT CANNOT REMEMBER THE NAME). REASSURED PT DISCUSSION WILL BE MADE IN REGARDS TO MANAGING HER PAIN, PT VERBALIZES UNDERSTANDING. PT DENIES N/V/D DURING SHIFT, ALL COMFORT AND SAFETY MEASURES PROVIDED FOR, CALL LIGHT WITHIN REACH, BED IN LOWEST POSITION, WILL CONTINUE TO MONITOR.
[2019-10-08 05:36] VITALS: BP 173/96
[2019-10-08 06:45] VITALS: BP 146/88
--- NOTE | 2019-10-08 07:15 | NUR ---
RECEIVED PT. IN BED A/A/O X3. NO SOB, NO N/V NOTED. PT. C/O ON AND OFF BACK PAIN. IV SITE NOTED TO L WRIST. PT. IS ON CONTACT ISOLATION FOR MRSA NARES. BED IN LOW POS., CALL LIGHT WITHIN REACH. SIDE RAILS UP X3.
[2019-10-08 09:20] VITALS: BP 139/54
[2019-10-08 12:34] VITALS: BP 149/54
--- NOTE | 2019-10-08 15:37 | NUR ---
DR. ALAN CALLED TO INQUIRE ABOUT D/C PLAN FOR PT. NOTIFIED THAT PT'S SON HAD CALLED WITH QUESTIONS ABOUT LAB RESULTS AND HAD VERBALIZED THAT HE PREFFERED PT TO BE D/C'D ON THURSDAY. DR. ALAN STATED HE WOULD SPEAK WITH PT'S SON TOMORROW AND TO MAKE ARRANGEMENTS FOR TRANSFER TO SNF FOR TOMORROW. ATTENDING NURSE MADE AWARE.
--- NOTE | 2019-10-08 17:00 | NUR ---
NOTIFIED BY CHANA STACK THAT PT'S SON WAS CALLED TO NOTIFY OF SNF TRANSFER PLAN FOR TOMORROW, BUT HE DID NOT RETURN CALL OF YET. DR. ALAN TO CALL SON TOMORROW WITH TRANSPORT ON WILL CALL FOR TOMORRROW. WILL CONT TO MONITOR.
[2019-10-08 18:16] VITALS: BP 120/78
--- NOTE | 2019-10-08 18:39 | NUR ---
REMAINS IN STABLE CONDITION AT THIS TIME. ORDER FOR NYSTATIN POWDER TO BE APPLIED TO CRISTOFER. GROINS BID OBTAINED FROM DR. ALAN FOR TX. OF ERYTHEMA TO CRISTOFER. GROINS.
--- NOTE | 2019-10-08 19:25 | NUR ---
RECEIVED PT RESTING IN BED, NO ACUTE DISTRESS NOTED. PT AOX4, DENIES DON/DIZZINESS. MESURG PT, DENIES CP. PULSES PALPABLE BILAT. CTA ON RA, DENIES SOB. ABD SOFT, ROUND, DENIES ABD PAIN. LBM= 10/08/19, PT USES BSC, DENIES DYSURIA. GENERALIZED WEAKNESS, USES WALKER AT BASELINE. PT WITH ERYTHEMA NOTED TO BILAT GROIN AREA, NYSTATIN POWDER ORDERD. IV SITE LEFT WRIST SALINE LOCKED AT THIS TIME. UA (+) ON LEVAQUIN. ALL COMFORT AND SAFETY MEASURES PROVIDED FOR, CALL LIGHT WITHIN REACH, BED IN LOWEST POSITION, WILL CONTINUE TO MONITOR.
--- NOTE | 2019-10-08 20:30 | NUR ---
UPON FLUSHIG IV, PT REPORTING STINGING. REMOVED OLD CATHETER (INTACT), WILL RESTART NEW IV. PT AGREEABEL WITH PLAN OF CARE, CALL LIGHT WITHIN REACH, BED IN LOWEST POSITION, WILL CONTINUE TO MONITOR.
[2019-10-08 20:56] VITALS: BP 132/59
--- NOTE | 2019-10-09 | NUR ---
PT RESTING IN BED WITH EYES CLOSED, RESP EVEN AND UNLABORED ON RA, IV SITE SALINE LOCKED. CALL LIGHT WITHIN REACH, BED IN LOWEST POSITION, CLUTTER FREE ENVIRONMENT, WILL CONTINUE TO MONITOR.
[2019-10-09 04:52] VITALS: BP 136/66
--- NOTE | 2019-10-09 05:30 | NUR ---
PT RESTED INTERVALS DURING SHIFT, NO ACUTE CHANGES OCCURRING OVERNIGHT. PT ABLE TO USE CALL LIGHT TO ASK FOR ASSISTANCE TO BSC, AMB W ASSIST. IV SITE REMAIN PATENT TO LT WRIST, ALL COMFORT AND SAFETY MEASURES PROVIDED FOR, CALL LIGHT WITHIN REACH, BED IN LOWEST POSITION, WILL CONTINUE TO MONITOR.
[2019-10-09 05:57] VITALS: BP 147/78
--- NOTE | 2019-10-09 07:10 | NUR ---
RECEIVED REPORT FROM MICHAEL LOPES. PATIENT SITTING AT EDGE OF BED READY FOR BREAKFAST. NO NEEDS IDENTIFIED. PT ON ROOM AIR. NO C/O SOB AND NO DISTRESS NOTED. SALINE LOCK NOTED TO LT WRIST WITH DRESSING INTACT. ALL QUESTIONS AND CONCERNS ADDRESSED.
[2019-10-09 08:56] VITALS: BP 133/59
--- NOTE | 2019-10-09 09:17 | NUR ---
IN TO SEE PATIENT AND ADMINISTER MEDICATION (SEE EMAR). PT NOW RESTING IN BED WITH ALL NEEDS MET.
--- NOTE | 2019-10-09 12:01 | NUR ---
IN TO SEE PATIENT AND ADMINISTER MEDICATION (SEE EMAR). PT NOW RESTING IN BED WITH ALL NEEDS MET.
[2019-10-09 12:13] VITALS: BP 147/49
--- NOTE | 2019-10-09 13:40 | NUR ---
PT.'S SON (CHANDRAKANT Dennis) CALLED AND STATED THAT HE DOES NOT APPROVE FOR THE PT. TO BE TRANSFERRED TO SNF TODAY. DR. ALAN MADE AWARE OF THE ABOVE. NO FURTHER ORDER RECEIVED AT THIS TIME. ATTENDING NURSE BETH MADE AWARE.
--- NOTE | 2019-10-09 14:16 | NUR ---
IN TO SEE PATIENT AND ADMINISTER MEDICATION (SEE EMAR). PT NOW RESTING IN BED WITH ALL NEEDS MET.
[2019-10-09 17:09] VITALS: BP 121/53
--- NOTE | 2019-10-09 19:25 | NUR ---
RECEIVED PT RESTING IN BED, NO ACUTE DISTRESS NOTED. PT AOX4, DENIES DON/DIZZINESS. MESURG PT, DENIES CP. PULSES PALPABLE BILAT. PT REPORTING PAIN AND BURNING SENSATION IN LLE WHEN LAYING ON IT FOR TOO LONG. EDUCATED PT TO TRY TO REPOSITION MORE OFTEN TO DECREASE PRESSURE ON LEFT SIDE, PT VERBALIZES UNDERSTANDING AND STATES IT ONLY HURTS WHEN SHE LAYS ON IT FOR TOO LONG. REPORTS THE NORCO HELPS WITH THE PAIN. CTA ON RA, DENIES SOB. ABD SOFT, ROUND, DENIES ABD PAIN. LBM= 10/08/19, PT REPROTS SOME DIARRHEA. PT USES BSC, DENIES DYSURIA. GENERALIZED WEAKNESS, USES WALKER AT BASELINE. PT WITH ERYTHEMA NOTED TO BILAT GROIN AREA, NYSTATIN POWDER ORDERD. IV SITE LEFT WRIST SALINE LOCKED AT THIS TIME. UA (+) ON LEVAQUIN. ALL COMFORT AND SAFETY MEASURES PROVIDED FOR, CALL LIGHT WITHIN REACH, BED IN LOWEST POSITION, WILL CONTINUE TO MONITOR.
--- NOTE | 2019-10-09 19:26 | NUR ---
REPORT GIVEN TO MICHAEL LOPES. PATIENT RESTING COMFORTABLY IN BED WITH ALL NEEDS MET. ALL QUESTIONS AND CONCERNS ADDRESSED. ALL CARES ENDORSED.
[2019-10-09 20:48] VITALS: BP 135/60
--- NOTE | 2019-10-09 20:56 | NUR ---
ASSISTED PT TO THE BSC, PT HAS SMALL BM AND URINATED. PT ABLE TO PIVOT TO BSC WITH ASSISTANCE. PT RETURNED BACK TO BED WITHOUT DIFFICULTY. ALL COMFORT AND SAFETY MEWASURES PROVIDED FOR, CALL LIGHT WITHIN REACH, BED IN LOWEST POSITION, WILL CONTINUE TO MONITOR.
--- NOTE | 2019-10-09 22:33 | NUR ---
PHONED DR ALAN IN REGARDS TO PT NORCO 10/325MG FROM EMAR, PER DR. ALAN, OK TO REINSTATE NORCO 10/325MG FOR PAIN. WILL INPUT ORDER DIRECTED.
--- NOTE | 2019-10-10 | NUR ---
PT VERY AGITATED SINCE SHE FEELS SHE IS NOT GETTING THE PROPER CARE SHE NEEDS. PT REPORTS SHE SHOULD BE ASLEEP BY NOW AND STS SHE WILL GO TO THE PREPARATION PLANT SUPERVISOR IN THE AM TO REPORT THE MALPRACTICE. EDUCATED PT CALMING MEDICATION TAKES ABOUT 1 HOUR TO WORK, AND STATED TO HER EARLIER, WILL REASSESS THE EFFECTIVENESS OF THE MEDICATION BEFORE PROVIDING SOMETHING ELSE. PT STS "THANK GOD IM OUT OF HERE TOMORROW!". ALL SAFETY MEASURES PROVIDED FOR, PT DENIES PAIN AT THIS TIME. WILL CONTINUE TO MONITOR.
--- NOTE | 2019-10-10 00:15 | NUR ---
RETURNED TO PT ROOM TO ASSESS THE EFFECTIVENESS OF MEDICATION, PT RESTING WITH EYES CLOSED, APPEARS TO BE SLEEPING. RESP EVEN AND UNLABORED, WILL CONTINUE TO ENSURE PT IS SLEEPING THROUGHOUT THE NIGHT. AMBIEN ON STANDBY IF PT NEED HELP SLEEPING. CALL LIGHT WITHIN REACH, BED IN LOWEST POSITION, WILL CONTINUE TO MONITOR.
--- NOTE | 2019-10-10 00:30 | NUR ---
PT USED CALL LIGHT TO ASK FOR ASSISTANCE PICKING PERSONAL BELONGING OFF OF FLOOR. VISITED PT ROOM TO PROVIDE ASSISTANCE. PT STS SHE APOLOGIZES FOR BEING RUDE AND STATES SHE IS JUST ANXIOUS ABOUT HER RECENT LEUKEMIA DIAGNOSIS. ENSURED PT WE WILL DO OUR BEST TO GET HER ON THE PATH FOR THE PROPER TREATMENT OF SUCH DIAGNOSIS AND WHILE SHE IS HERE WE WILL MANAGE THE CHRONIC PAIN AND ANTIBIOTIC THERAPY. COMFORTED PT IN REGARDS TO HER FUTURE IS IN GODS HAND AND SHE WILL BE TAKEN CARE OF. PT VERALIZES UNDERSTANDING AND IS RESTING IN BED COMFORTABLY. ALL COMFORT AND SAFETY MEASURES PROVIDED FOR, CALL LIGHT WITHIN REACH, BED IN LOWEST POSITION, WILL CONTINUE TO MONITOR.
--- NOTE | 2019-10-10 02:40 | NUR ---
PT UP WITH DIETITIAN UTILIZING THE BEDSIDE COMMODE, PT HAS RESTED IN SHORT INTERVALS, PT RETURNED BACK TO BED WITH ASSISTANCE, ALL COMFORT AND SAFETY MEASURES PROVIDED FOR, CALL LIGHT WITHIN REACH, BED IN LOWEST POSITION, WILL CONTINUE TO MONITOR.
--- NOTE | 2019-10-10 05:00 | NUR ---
PT RESTED IN VERY SHORT INTERVALS DURING SHIFT. PT VOIDED SEVERAL TIMES DURING SHIFT, ABLE TO USE CALL LIGHT TO ASK FOR ASSISTANCE. PT STILL REPROTING DYSURIA, REPORTS IT IS THE SAME INTENSITY BEFORE. PT REQUESTING TO HAVE LABS DRAWN IN THE AM TO ASSESS THE EFFECTIVENESS OF ANTIBIOTICS. WILL PHONE DR. ALAN IN AM IN REGARDS TO MORNING LABS. PT REFUSED LAXATIVE/STOOL SOFTENERS D/T REPORTED LOOSE STOOL. INFORMED PT D/T THE NORCO USE, STOOL SOFTENERS MAY BE NECESSARY IN [place]ATO FUTURE TO HELP PREVENT CONSTIPATION. IV SITE REMAINS PATENT TO LT WRIST, SALINE LOCKED. ALL COMFORT AND SAFETY MEASURES PROVIDED FOR, CALL LIGHT WITHIN REACH, BED IN LWOEST POSITION ,WILL CONTINUE TO MONITOR.
[2019-10-10 05:20] VITALS: BP 141/71
--- NOTE | 2019-10-10 08:00 | NUR ---
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 ALERT AND ORIENTED. GOOD HEARING. ASSIST WITH ADL'S D/T GENERALIZED WEAKNESS. CHRONIC GENERALIZED BODY ACHES. BREATHING FREELY ON RA. HOB SLIGHTLY ELEVATED. SL TO LEFT WRIST. MED SURG PT. CALL LIGHT WITHIN REACH.
[2019-10-10 09:39] VITALS: BP 165/68
[2019-10-10 12:33] VITALS: BP 153/75
[2019-10-10 16:28] VITALS: BP 122/68
--- NOTE | 2019-10-10 18:01 | NUR ---
SITTING UP AT EDGE OF BED EATING DINNER. IV HL'D. ASSIST W BSC. CONTACT ISOLATION FOR MRSA NARES. HIBICLENS BATH GIVEN. CONTINUES ON LEVAQUIN IV ABX. NORCO FOR GENERALIZED BODY ACHES. VSS AFEBRILE. ORDER FOR P.T. CALL LIGHT WITHIN REACH.
--- NOTE | 2019-10-10 18:51 | NUR ---
[facility] ON WILL CALL FOR POSSIBLE TRANSFER TOMORROW.
--- NOTE | 2019-10-10 19:10 | NUR ---
PT RECEIVED A/O X4, ABLE TO MAKE NEEDS KNOWN. MED-SURG, NO TELE, PT DENIES ANY CP/PRESSURE. PULSES PALPABLE, NO EDEMA PRESENT. BREATHING IS EVEN AND UNLABORED ON RA, NO RESP DISTRESS NOTED. ABD SOFT AND ROUND, PT DENIES ANY N/V. VOIDS FREELY, BSC. GENERALIZED WEAKNESS, AMBULATORY WITH ASSIST, WALKER AT BEDSIDE. ERYTHEMA NTOED TO GROIN AREA WITH NYSTATIN IN PLACE, PRODUCT MARKETING DIRECTOR. PT DENIES HAVING ANY PAIN AT THIS TIME. SL TO LW, PATENT AND INTACT. CONTACT PRECATIONS IN PLACE FOR (+) MRSA NARES. NO ACUTE DSITRESS OBSERVED. BED IN LOWEST SETTING, SIDE RAILS UP X2, CALL LIGHT WITHIN REACH. WILL CONT TO MONITOR.
--- NOTE | 2019-10-10 20:30 | NUR ---
PT C/O ANXIETY, PRN ATIVAN PO GIVEN ORDERED. NO ACUTE DISTRESS NOTED. WILL CONT TO MONITOR.
--- NOTE | 2019-10-10 21:11 | NUR ---
PT C/O 9/10 GENERALIZED PAIN, PRN NORCO GIVEN ORDERED. NO ACUTE DISTRESS NOTED. WILL CONT TO MONITOR.
--- NOTE | 2019-10-11 01:15 | NUR ---
PT RESTING IN BED WITH EYES CLOSED, BUT IS EASILY AROUSABLE. BREATHING IS EVEN AND UNLABORED, NO RESP DISTRESS NOTED. PT DENIES HAVING ANY PAIN AT THIS TIME. PT ASSISTED TO BSC AND BACK TO BED WITHOUT INCIDENT, PT VOIDED X1. NO ACUTE DISTRESS NOTED. CALL LIGHT WITHIN REACH. WILL CONT TO MONITOR.
[2019-10-11 05:50] VITALS: BP 152/82
--- NOTE | 2019-10-11 06:35 | NUR ---
PT SLEPT WELL THROUGHOUT THE EVENING. BREATHING IS EVEN AND UNLABORED, NO RESP DISTRESS NOTED. PT DENIES HAVING ANY PAIN AT THIS TIME. NO ACUTE CHANGES ENCOUNTERED DURING SHIFT. ALL NEEDS MET AND ANTICIPATED. SL TO LW INTACT. CALL LIGHT WTIHIN REACH. WILL ENDORSE CARE TO AM NURSE.
--- NOTE | 2019-10-11 08:01 | NUR ---
PHYSICAL THERAPY DAILY NOTES CO-SIGN All documentation done by the [employer] Leak Tester for 10/10/19 has been reviewed. I agree with the documentation. Reviewed/Co-Signed by: Gabriella Le PT Documentation Done by:BECKY NAZARIO PTA
--- NOTE | 2019-10-11 08:04 | NUR ---
RECEIVED PATIENT FROM MARIANNE SHERMAN. PATIENT IN BED SLEEPING AT THIS TIME. NO SIGNS OF SOB OF PAIN. WILL SPEAK WITH PATIENT AGAIN ONCE AWAKE. CURRENT PLAN ENDORSED TO THIS NURSE WAS THAT PATIENT WILL BE TRANSFERRED OUT TODAY, HOWEVER NEED ORDER FROM PHYSICIAN DUE TO PATIENT AND SON NOT WANTING DR ALAN OR DR PEACE PER PIPE TURNER NURSE.
[2019-10-11 08:16] VITALS: BP 147/69
--- NOTE | 2019-10-11 09:31 | NUR ---
PATIENT NOW AWAKE. PATIENT STATES SHE NEEDS TO GET FURTHER BLOOD WORK "TO SEE IF I STILL HAVE AN INFECTION". NO AM LABS DRAWN TODAY DUE TO PATIENT BEING CLEARED MEDICALLY BY DR ALAN. PATIENT ALSO STATES SHE IS NOT READY TO LEAVE YET BECAUSE SHE "FEELS TERRIBLE". WILL SPEAK WITH CHARGE NURSE VENKAT ABOUT SITUATION YESTERDAY SON DISPUTED DISCHARGE AND PATIENT AND SON STATED THEY "FIRED DR ALAN"
--- NOTE | 2019-10-11 12:52 | NUR ---
SPOKE WITH GASKET MAKER BREONNA ABOUT PATIENT. BREONNA STATES THAT THEY ARE WORKING ON TRANSFERRING PATIENT TO [facility] AND WILL LIKELY TO BE RECEIVED BY DR MESA. CURRENTLY WAITING FOR APPROVAL AND CLEARANCE OF DISCHARGE APPEAL. PATIENT CONTINUES TO COMPLAIN ABOUT ABDOMINAL PAIN AND SPOKE WITH HER THAT SHE NEEDS TO DO REHAB IN A SNF VS IN THE ACUTE SETTING
[2019-10-11 13:13] VITALS: BP 140/72
--- NOTE | 2019-10-11 14:49 | NUR ---
SPOKE WITH PATIENT SON RICHARD AND GENERAL II FARMWORKER BREONNA. BOTH STATE THAT THEY RETRACT THE DISCHARGE REPEAL AND NOW SON AND PATIENT AGREEABLE TO BE TRANSFERRED TO [facility]. CM BREONNA STATES PATIENT TO BE PICKED BY TRANSPORT AROUND 1630. TRANSFER PACKET NOW BEING COMPILED AND WILL WAIT FOR TRANSPORT TO ARRIVE. CALL LIGHT IN REACH, IV REMOVED AND INTACT AT THIS TIME, PATIENT STATING "SHE WANTS THIS THING OUT."
--- NOTE | 2019-10-11 15:43 | NUR ---
REPORT GIVEN TO MARIANNE FELDMAN AT [facility]. TRANSFER PACKET COMPILED AND WILL AWAIT FOR TRANSPORT. PATIENT AGAIN ASKING FOR PRN PAIN CONTROL AND PO NORCO.
[2019-10-11 15:45] VITALS: BP 140/72
[2019-10-11 17:02] VITALS: BP 143/74
--- NOTE | 2019-10-11 18:40 | NUR ---
[facility] CALLED TO VERIFY TRANSPORT. OPERATED STATED THAT THEY ARE BEHIND AND ESTIMATED THAT THEY WOULD BE HERE FOR TRANSPORT IN "15-20 MINS." PATIENT SEEN STANDING AT DOORWAY, NO COMPLAINTS AT THIS TIME. UPDATED PATIENT ABOUT PATTERN SCRATCHER.
--- NOTE | 2019-10-11 19:10 | NUR ---
REPORT RECEIVED FROM NITZA LOPES. PT A/O X4, ABLE TO MAKE NEEDS KNOWN. MED-SURG, DENIES ANY CP/PRESSURE. BREATHING IS EVEN AND UNLABORED ON RA, NO RESP DISTRESS NOTED. VOIDS FREELY, BSC. AMBULATORY WITH ASSIST. PT REPORTS MODERATE GENERALIZED PAIN, PT RECENTLY MEDICATED BY AM NURSE WITH PRN NORCO. NO IV ACCESS AT THIS TIME. PT AWAITING [facility] TRANSPORT TEAM TO [facility]. TRANSFER PACKET COMPLETED. PT'S BELONGINGS ALL PACKED UP. PT IN NO ACUTE DISTRESS. WILL CONT TO MONITOR.
--- NOTE | 2019-10-11 19:25 | NUR ---
PT LEFT UNIT IN NO ACUTE DISTRESS VIA WHEELCHAIR ACCOMPANIED BY TRANSPORT TEAM. TRANSFER PACKET WITH TRANSPORT TEAM AND ALL BELONGINGS LEFT WITH PT.
== END 2019-10-11 19:25 | DRG 689 ==
LOC: ED 13:13 → MU 16:43
PROVIDERS: Emergency Medicine; Internal Medicine; Internal Medicine Gastroenterology; ADMIT Family Medicine
PROC: 0DB68ZX Excision of Stomach, Via Natural or Artificial Opening Endoscopic, Diagnostic (ICD-10-PCS; principal; 2019-10-07 12:00)
DX: N39.0 Urinary tract infection, site not specified (principal); N17.0 Acute kidney failure with tubular necrosis; K29.70 Gastritis, unspecified, without bleeding; I10 Essential (primary) hypertension; E11.9 Type 2 diabetes mellitus without complications; K21.9 Gastro-esophageal reflux disease without esophagitis; I25.10 Atherosclerotic heart disease of native coronary artery without angina pectoris; Z68.32 Body mass index [BMI] 32.0-32.9, adult; Z87.11 Personal history of peptic ulcer disease; Z79.84 Long term (current) use of oral hypoglycemic drugs; K57.90 Diverticulosis of intestine, part unspecified, without perforation or abscess without bleeding
CPT/HCPCS: 43235; 82962; 97110-GP; 97116-GP; 97530-GP; G0378; J0696; J1200; J1610; J1885; J1940; J1956; J2250; J2270; J2310; J2405; J2550; J3010; J3490; J7040; J7060; Q0092